=== PATIENT | female | born 1965 | race Caucasian/White ===

== ENCOUNTER → 2016-05-31 | Outpatient (CLI) | payer MEDICARE ==
--- NOTE | ~2016-05-31 | PUL ---
PATIENT'S NAME: ALKA ALFARO [facility] AGE: 50 Y [address] ROOM: [place] [address] LOCATION: [facility] ADMIT DATE: 05/31/2016 Pulmonary DISCHARGE DATE: FAMILY PHYSICIAN: Dorota Miller MD ATTENDING PHYSICIAN: Dorota Miller NAME OF PROCEDURE: Sleep Study DATE OF PROCEDURE: 05/31/16 TECH: ERIN Emery TEST #: [facility] [place]# [id number] MEDICAL HISTORY: The patient is a 50-year-old woman with history of persistent difficulty maintaining wakefulness. SLEEP STAGE SUMMARY: The patient was studied for 408 minutes of which she slept 271 minutes. She fell asleep in 20 minutes and slept for 66% of the night. RESPIRATORY SUMMARY: Oxygen saturations ranged from 91-97%. This study was done to titrate CPAP which was initiated at 10 cm and adjusted to 12 cm with good control of the respiratory events. EKG SUMMARY: No significant dysrhythmias were noted. LIMB MOVEMENT SUMMARY: No clinically relevant periodic limb movements were noted. SUMMARY: History of obstructive sleep apnea which appears to be well controlled on 12 cm of CPAP. PLAN: Patient will receive results from the ordering provider. MD SHELL MONSIVAIS/ /[id number] dtt: 06/11/16 1017 , Zenon Cook dtd: 06/03/16 1310
== END | disposition disaster alternative care site (69) ==
LOC: GSLP 05-11 21:00
DX: G47.33 Obstructive sleep apnea (adult) (pediatric) (principal)